=== PATIENT | male | born 1950 | race Caucasian/White ===

== ENCOUNTER → 2017-04-30 09:44 | Outpatient (CLI) | payer MEDICARE, SELFPAY ==
[2017-04-30 12:39] LABS: ALB/GLOB Ratio 1.1 RATIO (0.9-2.4); AST(SGOT) 25 U/L (15-37); Alanine Aminotransfer ALT/SGPT 35 U/L (16-61); Albumin, Serum 3.7 g/dL (3.2-5.0); Alkaline Phosphatase 83 U/L (45-117); Anion Gap 7 (5-15); BUN 19 mg/dL (7-18); BUN/Creat Ratio 27.1 RATIO (10-20); Calcium,Total 8.6 mg/dL (8.5-10.1); Chloride 108 mmol/L (98-107); Cholesterol 244 mg/dL (200); EST Glomerular Filtration Rate 119 mL/min (>60); Est Glom Filt Rate - Afr Amer 144 mL/min (>60); Globulin 3.3 g/dL (2.2-4.2); Glucose 103 mg/dL (74-106); High Density Lipoprotein 38 mg/dL; Sodium Level 140 mmol/L (136-145); Triglycerides 119 mg/dL; Very Low Density Lipoprotein 24 mg/dL (5-40)
== END ==
PROVIDERS: Family Provider Family Medicine; PCP Family Medicine; Visit Provider Family Medicine
DX: E78.5 Hyperlipidemia, unspecified (principal)
CPT/HCPCS: 36415; 80053; 80061

== ENCOUNTER → 2017-10-22 11:45 | Outpatient (CLI) | payer MEDICARE, SELFPAY ==
[2017-10-22 14:10] LABS: Hematocrit 39.1 % (40-54); Hemoglobin 12.8 g/dl (13.0-16.5); Mean Corp Hgb Conc 32.7 g/gl (32-36); Mean Corpuscular Hgb 28.8 pg (27.0-32.0); Mean Corpuscular Volume 88.1 fL (80-94); Mean Platelet Vol. 10.5 fl (6.2-12.0); Platelet Count 365 K/mm3 (150-450); RBC Distribution Width SD 45.2 fl (35.1-43.9); Red Blood Count 4.44 M/mm3 (4.6-6.2); White Blood Count 8.6 K/mm3 (4.4-11.0)
[2017-10-22 14:15] LABS: Scan Indicated on CBC? Y/N NO
[2017-10-22 14:33] LABS: ALB/GLOB Ratio 1.1 RATIO (0.9-2.4); AST(SGOT) 28 U/L (15-37); Alanine Aminotransfer ALT/SGPT 39 U/L (16-61); Albumin, Serum 3.7 g/dL (3.2-5.0); Alkaline Phosphatase 86 U/L (45-117); Anion Gap 9 (5-15); BUN 14 mg/dL (7-18); BUN/Creat Ratio 17.2 RATIO (10-20); Calcium,Total 9.1 mg/dL (8.5-10.1); Chloride 111 mmol/L (98-107); Cholesterol 176 mg/dL (200); Creatinine, Serum 0.81 mg/dL (0.70-1.30); EST Glomerular Filtration Rate 100 mL/min (>60); Est Glom Filt Rate - Afr Amer 121 mL/min (>60); Globulin 3.3 g/dL (2.2-4.2); Glucose 91 mg/dL (74-106); High Density Lipoprotein 41 mg/dL; Potassium 4.3 mmol/L (3.5-5.1); Sodium Level 146 mmol/L (136-145); Triglycerides 85 mg/dL; Very Low Density Lipoprotein 17 mg/dL (5-40)
== END ==
PROVIDERS: Family Provider Family Medicine; PCP Family Medicine; Visit Provider Family Medicine
DX: E78.5 Hyperlipidemia, unspecified (principal); Z85.79 Personal history of other malignant neoplasms of lymphoid, hematopoietic and related tissues
CPT/HCPCS: 36415; 80053; 80061; 85027

== ENCOUNTER → 2018-04-29 11:38 | Outpatient (CLI) | payer MEDICARE, SELFPAY ==
[2015-12-23 17:19] VITALS: BMI 27.1
[2018-04-29 14:24] LABS: AST(SGOT) 24 U/L (15-37); Alanine Aminotransfer ALT/SGPT 41 U/L (16-61); Alkaline Phosphatase 97 U/L (45-117); Bilirubin, Direct 0.15 mg/dL (0.00-0.30); Cholesterol 164 mg/dL (200); Globulin 3.3 g/dL (2.2-4.2); High Density Lipoprotein 38 mg/dL; Protein, Total 7.3 g/dL (6.4-8.2); Triglycerides 93 mg/dL; Very Low Density Lipoprotein 19 mg/dL (5-40)
== END ==
PROVIDERS: Family Provider Family Medicine; PCP Family Medicine; Referring Provider Family Medicine; Visit Provider Family Medicine
DX: E78.5 Hyperlipidemia, unspecified (principal)
CPT/HCPCS: 36415; 80061; 80076

== ENCOUNTER → 2018-06-26 10:35 | Outpatient (CLI) | payer MEDICARE, SELFPAY ==
[2015-12-23 17:19] VITALS: BMI 27.1
[2018-06-26 12:53] LABS: Hematocrit 40.3 % (40-54); Mean Corp Hgb Conc 32.3 g/gl (32-36); Mean Corpuscular Hgb 28.3 pg (27.0-32.0); Mean Corpuscular Volume 87.8 fL (80-94); Mean Platelet Vol. 10.3 fl (6.2-12.0); Platelet Count 404 K/mm3 (150-450); RBC Distribution Width SD 44.8 fl (35.1-43.9); Red Blood Count 4.59 M/mm3 (4.6-6.2); White Blood Count 7.1 K/mm3 (4.4-11.0)
[2018-06-26 13:05] LABS: Hemoglobin A1c 5.8 % (4.2-6.3)
[2018-06-26 13:11] LABS: Homocysteine 7.4 umol/L (3.2-10.7)
[2018-06-26 13:14] LABS: Scan Indicated on CBC? Y/N NO
[2018-06-26 13:18] LABS: Progesterone Level 0.27 ng/mL (See Comment); Vitamin B12 980 pg/mL (211-911); Vitamin D,25 Hydroxy 18.7 ng/mL (29.95-100.01)
[2018-06-26 15:30] LABS: ALB/GLOB Ratio 1.3 RATIO (0.9-2.4); AST(SGOT) 23 U/L (15-37); Alanine Aminotransfer ALT/SGPT 43 U/L (16-61); Albumin, Serum 3.9 g/dL (3.2-5.0); Alkaline Phosphatase 103 U/L (45-117); Anion Gap 8 (5-15); BUN 17 mg/dL (7-18); BUN/Creat Ratio 22.8 RATIO (10-20); CRP, High Sensitivity Cardiac 3.53 mg/L; Chloride 109 mmol/L (98-107); Cholesterol 173 mg/dL (200); Creatinine, Serum 0.75 mg/dL (0.70-1.30); EST Glomerular Filtration Rate 111 mL/min (>60); Est Glom Filt Rate - Afr Amer 134 mL/min (>60); Estradiol 18.4 pg/mL; Follicle Stimulating Hormone 17.6 mIU/mL; Free T3 2.8 pg/mL (2.18-3.98); Globulin 3.1 g/dL (2.2-4.2); Glucose 97 mg/dL (74-106); High Density Lipoprotein 39 mg/dL; Iron 48 ug/dL (65-175); Magnesium 1.9 mg/dL (1.6-2.6); PSA,Total - Annual Screen 2.54 ng/mL (0.00-4.00); Potassium 4.6 mmol/L (3.5-5.1); Prolactin 4.5 ng/mL; Sodium Level 143 mmol/L (136-145); T4 Total, Thyroxin 8.4 ug/dL (4.5-12.1); Thyroid Stim Hormone (TSH) 1.62 uIU/mL (0.358-3.74); Triglycerides 80 mg/dL; Very Low Density Lipoprotein 16 mg/dL (5-40)
[2018-06-29 09:07] LABS: DHEA Sulfate 95.6 ug/dL (30.9-295.6); Insulin Like Growth Factor 90 ng/mL (47-192); Testosterone, % Free 2.24 % (1.50-4.20); Testosterone, Free 5.15 ng/dL (5.00-21.00)
[2018-06-29 11:58] LABS: Sex Hormone-binding Globulin 34.4 nmol/L (19.3-76.4); Testosterone, Total 230 ng/dL (264-916)
== END ==
PROVIDERS: Family Provider Family Medicine; PCP Family Medicine; Referring Provider Family Medicine; Visit Provider Registered Nurse
DX: R53.82 Chronic fatigue, unspecified (principal); M62.81 Muscle weakness (generalized); R68.82 Decreased libido
CPT/HCPCS: 36415; 80053; 80061; 82306; 82533; 82607; 82627; 82670; 82746; 83001; 83002; 83036; 83090; 83540; 83735; 84144; 84146; 84153; 84270; 84305; 84402; 84403; 84436; 84439; 84443; 84481; 85027; 86141; 82626; G0103

== ENCOUNTER → 2018-08-03 14:16 | Outpatient (CLI) | payer MEDICARE, SELFPAY | PROVIDERS: Family Provider Family Medicine; PCP Family Medicine; Visit Provider Family Medicine | DX: E29.1 Testicular hypofunction (principal) | CPT/HCPCS: 36415; 84403 ==

== ENCOUNTER → 2019-05-10 14:44 | Outpatient (CLI) | payer MEDICARE, SELFPAY ==
[2015-12-23 17:19] VITALS: BMI 27.1
[2019-05-10 17:43] LABS: Absolute Lymphocyte Count 1.59 X10^3/uL (0.83-4.51); Absolute Neutrophil Count 6.1 X10^3/uL (2.0-7.7); Basophil# 0.06 X10^3/uL; Basophil% 0.6 % (0-1); Eosinophil# 0.91 X10^3/uL; Eosinophils% 9.5 % (0-5); Hematocrit 40.4 % (40-54); Hemoglobin 12.8 g/dL (13.0-16.5); Lymphocyte # 1.59 X10^3/ul (4.0); Lymphocyte % 16.6 % (19-41); Mean Corp Hgb Conc 31.7 g/dL (32-36); Mean Corpuscular Hgb 28.9 pg (27.0-32.0); Mean Corpuscular Volume 91.2 fL (80-94); Mean Platelet Vol. 10.6 fl (6.2-12.0); Monocyte# 0.88 X10^3/uL; Monocyte% 9.2 % (0-10); NRBC Flagged by Analyzer 0 % (0-5); Neutrophil # 6.11 X10^3/uL (2.7-7.7); Neutrophil % 63.9 % (47-70); Platelet Count 389 K/mm3 (150-450); RBC Distribution Width CV 13.6 % (11.6-14.6); RBC Distribution Width SD 45.9 fl (35.1-43.9); Red Blood Count 4.43 M/mm3 (4.6-6.2); White Blood Count 9.6 K/mm3 (4.4-11.0)
[2019-05-10 18:01] LABS: Vitamin D,25 Hydroxy 31.3 ng/mL
[2019-05-10 18:05] LABS: Anion Gap 6 (5-15); BUN 15 mg/dL (7-18); BUN/Creat Ratio 18.8 RATIO (10-20); Calcium,Total 9.1 mg/dL (8.5-10.1); Chloride 111 mmol/L (98-107); Cholesterol 158 mg/dL (200); EST Glomerular Filtration Rate 102 mL/min (>60); Est Glom Filt Rate - Afr Amer 123 mL/min (>60); Glucose 90 mg/dL (74-106); High Density Lipoprotein 36 mg/dL; Potassium 4.2 mmol/L (3.5-5.1); Sodium Level 143 mmol/L (136-145); Triglycerides 87 mg/dL; Very Low Density Lipoprotein 17 mg/dL (5-40)
== END ==
PROVIDERS: PCP Family Medicine; Referring Provider Family Medicine; Visit Provider Family Medicine
DX: E55.9 Vitamin D deficiency, unspecified (principal); D64.9 Anemia, unspecified; I10 Essential (primary) hypertension
CPT/HCPCS: 36415; 80048; 80061; 82306; 85025

== ENCOUNTER → 2019-11-15 13:53 | Outpatient (CLI) | payer MEDICARE, SELFPAY ==
[2015-12-23 17:19] VITALS: BMI 27.1
[2019-11-15 16:49] LABS: Cholesterol 172 mg/dL (200); High Density Lipoprotein 40 mg/dL; PSA,Total - Annual Screen 2.55 ng/mL (0.00-4.00); Triglycerides 77 mg/dL; Very Low Density Lipoprotein 15 mg/dL (5-40)
== END ==
PROVIDERS: PCP Family Medicine; Referring Provider Family Medicine; Visit Provider Family Medicine
DX: E78.5 Hyperlipidemia, unspecified (principal); Z12.5 Encounter for screening for malignant neoplasm of prostate
CPT/HCPCS: 36415; 80061; 84153; G0103

== ENCOUNTER 2020-04-27 10:49 | Outpatient (RCR) | payer MEDICARE, SELFPAY ==
[2015-12-23 17:19] VITALS: BMI 27.1
[2020-04-27] MEDS: COVID-19 VACC, MRNA(PFIZER)/PF 30 MCG/0.3 ML SYRINGE IM (09:05)
[2020-05-18] MEDS: COVID-19 VACC, MRNA(PFIZER)/PF 30 MCG/0.3 ML SYRINGE IM (09:02)
== END 2020-08-01 23:59 ==
LOC: IMMUN 10:49
PROVIDERS: PCP Family Medicine; Referring Provider Family Medicine; Visit Provider Family Medicine
DX: Z23 Encounter for immunization (principal)
CPT/HCPCS: 0001A; 0002A; 91300

== ENCOUNTER → 2020-05-15 13:52 | Outpatient (CLI) | payer MEDICARE, SELFPAY ==
[2015-12-23 17:19] VITALS: BMI 27.1
[2020-05-15 15:51] LABS: ALB/GLOB Ratio 1.1 RATIO (0.9-2.4); AST(SGOT) 20 U/L (15-37); Alanine Aminotransfer ALT/SGPT 37 U/L (16-61); Albumin, Serum 3.7 g/dL (3.2-5.0); Alkaline Phosphatase 103 U/L (45-117); Anion Gap 4 (5-15); BUN 14 mg/dL (7-18); Calcium,Total 8.9 mg/dL (8.5-10.1); Chloride 109 mmol/L (98-107); Cholesterol 173 mg/dL (200); EST Glomerular Filtration Rate 118 mL/min (>60); Est Glom Filt Rate - Afr Amer 143 mL/min (>60); Globulin 3.4 g/dL (2.2-4.2); Glucose 89 mg/dL (74-106); High Density Lipoprotein 40 mg/dL; Protein, Total 7.1 g/dL (6.4-8.2); Sodium Level 141 mmol/L (136-145); Triglycerides 82 mg/dL; Very Low Density Lipoprotein 16 mg/dL (5-40)
[2020-05-15 16:24] LABS: Hepatitis C Antibody Non-Reactive (Nonreactive)
== END ==
PROVIDERS: PCP Family Medicine; Visit Provider Family Medicine
DX: E78.5 Hyperlipidemia, unspecified (principal); Z11.59 Encounter for screening for other viral diseases
CPT/HCPCS: 36415; 80053; 80061; 86803

== ENCOUNTER → 2020-10-16 15:39 | Outpatient (CLI) | payer MEDICARE, SELFPAY | PROVIDERS: PCP Family Medicine; Visit Provider Physician Assistant | DX: Z11.52 Encounter for screening for COVID-19 (principal) | CPT/HCPCS: 87635; U0005; U0003 ==

== ENCOUNTER → 2020-11-02 14:42 | Outpatient (CLI) | payer MEDICARE, SELFPAY ==
[2020-11-02 18:51] LABS: Anion Gap 7 (5-15); BUN 17 mg/dL (7-18); BUN/Creat Ratio 23.2 RATIO (10-20); Calcium,Total 8.8 mg/dL (8.5-10.1); Chloride 108 mmol/L (98-107); Cholesterol 160 mg/dL (200); Creatinine, Serum 0.73 mg/dL (0.70-1.30); EST Glomerular Filtration Rate 112 mL/min (>60); Est Glom Filt Rate - Afr Amer 136 mL/min (>60); Glucose 94 mg/dL (74-106); High Density Lipoprotein 33 mg/dL; Sodium Level 140 mmol/L (136-145); Triglycerides 86 mg/dL; Very Low Density Lipoprotein 17 mg/dL (5-40)
== END ==
PROVIDERS: PCP Family Medicine; Referring Provider Family Medicine; Visit Provider Family Medicine
DX: Z00.00 Encounter for general adult medical examination without abnormal findings (principal); E78.5 Hyperlipidemia, unspecified; E55.9 Vitamin D deficiency, unspecified
CPT/HCPCS: 36415; 80048; 80061; 82306

== ENCOUNTER 2021-05-18 10:48 | Outpatient (CLI) | payer MEDICARE, SELFPAY ==
[2021-05-18 12:12] LABS: Basophil# 0.06 X10^3/uL; Basophil% 0.8 % (0-1); Eosinophil# 1.01 X10^3/uL; Hematocrit 38.1 % (40-54); Hemoglobin 12.5 g/dL (13.0-16.5); Lymphocyte % 21.9 % (19-41); Mean Corp Hgb Conc 32.8 g/dL (32-36); Mean Corpuscular Hgb 29.3 pg (27.0-32.0); Mean Corpuscular Volume 89.4 fL (80-94); Mean Platelet Vol. 10.2 fl (6.2-12.0); Monocyte# 0.96 X10^3/uL; Monocyte% 12.3 % (0-10); NRBC Flagged by Analyzer 0 % (0-5); Neutrophil # 4.03 X10^3/uL (2.7-7.7); Neutrophil % 51.7 % (47-70); Platelet Count 394 K/mm3 (150-450); Red Blood Count 4.26 M/mm3 (4.6-6.2); White Blood Count 7.8 K/mm3 (4.4-11.0)
[2021-05-18 12:26] LABS: Anion Gap 4 (5-15); BUN 19 mg/dL (7-18); BUN/Creat Ratio 26.4 RATIO (10-20); Calcium,Total 8.6 mg/dL (8.5-10.1); Chloride 110 mmol/L (98-107); Cholesterol 144 mg/dL (200); Creatinine, Serum 0.72 mg/dL (0.70-1.30); EST Glomerular Filtration Rate 114 mL/min (>60); Est Glom Filt Rate - Afr Amer 138 mL/min (>60); Glucose 109 mg/dL (74-106); High Density Lipoprotein 33 mg/dL; Potassium 4.1 mmol/L (3.5-5.1); Sodium Level 141 mmol/L (136-145); Triglycerides 78 mg/dL; Very Low Density Lipoprotein 16 mg/dL (5-40)
== END 2021-05-18 23:59 | disposition home or self-care (01) ==
LOC: MFPLAB 10:51
PROVIDERS: PCP Family Medicine; Referring Provider Family Medicine; Visit Provider Family Medicine
DX: E78.5 Hyperlipidemia, unspecified (principal); Z85.79 Personal history of other malignant neoplasms of lymphoid, hematopoietic and related tissues
CPT/HCPCS: 36415; 80048; 80061; 85025

== ENCOUNTER → 2021-10-31 | Outpatient (CLI) | payer MEDICARE, SELFPAY ==
[2021-10-31 18:58] LABS: ALB/GLOB Ratio 1.1 RATIO (0.9-2.4); AST(SGOT) 24 U/L (15-37); Alanine Aminotransfer ALT/SGPT 33 U/L (16-61); Albumin, Serum 3.6 g/dL (3.2-5.0); Alkaline Phosphatase 83 U/L (45-117); Anion Gap 7 (5-15); BUN 15 mg/dL (7-18); BUN/Creat Ratio 19.3 RATIO (10-20); Calcium,Total 8.8 mg/dL (8.5-10.1); Chloride 106 mmol/L (98-107); Cholesterol 242 mg/dL (200); Creatinine, Serum 0.78 mg/dL (0.70-1.30); EST Glomerular Filtration Rate 105 mL/min (>60); Est Glom Filt Rate - Afr Amer 127 mL/min (>60); Globulin 3.3 g/dL (2.2-4.2); Glucose 92 mg/dL (74-106); High Density Lipoprotein 38 mg/dL; PSA,Total - Annual Screen 2.71 ng/mL (0.00-4.00); Potassium 4.1 mmol/L (3.5-5.1); Protein, Total 6.9 g/dL (6.4-8.2); Sodium Level 140 mmol/L (136-145); Triglycerides 118 mg/dL; Very Low Density Lipoprotein 24 mg/dL (5-40)
== END | disposition home or self-care (01) ==
LOC: MFPLAB 14:24
PROVIDERS: PCP Family Medicine; Referring Provider Family Medicine; Visit Provider Family Medicine
DX: E78.5 Hyperlipidemia, unspecified (principal); Z12.5 Encounter for screening for malignant neoplasm of prostate
CPT/HCPCS: 36415; 80053; 80061; 84153; G0103

== ENCOUNTER → 2022-06-14 | Outpatient (CLI) | payer MEDICARE, SELFPAY ==
--- NOTE | 2022-06-14 15:05 | RAD_ITS ---
INDICATION: left foot pain EXAMINATION/TECHNIQUE: X-RAY - LEFT XR Foot Min 3 Views 3 VIEWS COMPARISON: Left ankle series same date FINDINGS: SOFT TISSUES: No soft tissue swelling or gas. No radiopaque foreign body. BONES/JOINTS: No acute fracture or subluxation.. Mild degenerative changes. Joint spaces anatomically aligned. No sclerotic or destructive changes observed. RAD/Foot min 3 Views IMPRESSION: No acute bony abnormality. Electronically Signed: He Acosta MD at 18:28 EDT ,
--- NOTE | 2022-06-14 15:05 | RAD_ITS ---
INDICATION: left ankle pain EXAMINATION/TECHNIQUE: X-RAY - LEFT XR Ankle Min 3 Views 3 VIEWS COMPARISON: Left foot series same date FINDINGS: SOFT TISSUES: No soft tissue swelling or gas. No radiopaque foreign body. BONES/JOINTS: No acute fracture or subluxation.. Joint spaces anatomically aligned. Mild degenerative changes.. No sclerotic or destructive changes observed. RAD/Ankle min 3 Views IMPRESSION: No acute findings. Electronically Signed: He Acosta MD at 18:27 EDT ,
== END | disposition home or self-care (01) ==
PROVIDERS: PCP Family Medicine; Referring Provider Family Medicine; Visit Provider Family Medicine
DX: S93.409A Sprain of unspecified ligament of unspecified ankle, initial encounter (principal)
CPT/HCPCS: 73610; 73630

== ENCOUNTER → 2022-07-31 | Outpatient (CLI) | payer MEDICARE, SELFPAY ==
--- NOTE | 2022-07-31 15:08 | VDLE_ITS ---
Reason For Study: Bi-lateral leg swelling RIGHT LEFT GSV is normal. GSV is normal. CFV is compressible, spontaneous, phasic, CFV is compressible, spontaneous, phasic, competent and demonstrates normal competent, and demonstrates normal augmentation. augmentation. FV is compressible, spontaneous, phasic, FV is compressible, spontaneous, phasic, competent and demonstrates normal competent and demonstrates normal augmentation. augmentation. POP V is compressible, spontaneous, phasic, POP V is compressible, spontaneous, phasic, competent and demonstrates normal competent and demonstrates normal augmentation. augmentation. T/P Trunk is compressible. T/P Trunk is compressible. PTV is compressible. PTV is compressible. RT PerV is compressible. LT PerV is compressible. Procedure This is a venous duplex using B-mode, color flow and spectral Doppler. Exam performed in department. The exam was diagnostic. A preliminary report was called and/or faxed to Dr. Moran's office. VL/Venous Duplex US - Sahil Extrem Interpretation Summary No evidence for acute deep venous thrombosis bilateral lower extremities with p atent and compressible bilateral great saphenous veins. Ordering Physician: Enrique Moran Referring Physician: Edvin Gonzalez Performed By: Price Lamb RVT
== END | disposition home or self-care (01) ==
LOC: CVS 15:03
PROVIDERS: PCP Family Medicine; Referring Provider Podiatrist; Visit Provider Podiatrist
DX: R22.42 Localized swelling, mass and lump, left lower limb (principal); I82.409 Acute embolism and thrombosis of unspecified deep veins of unspecified lower extremity
CPT/HCPCS: 93970

== ENCOUNTER → 2022-08-13 | Outpatient (CLI) | payer MEDICARE, SELFPAY ==
--- NOTE | 2022-08-13 13:00 | MRI_ITS ---
EXAM: MR LEFT LOWER EXTREMITY WITHOUT INTRAVENOUS CONTRAST, FOOT CLINICAL INDICATION: LEFT foot sinus tarsi syndrome,capsulitis 3rd MTPT, peronal -- tendinitis TECHNIQUE: Multiplanar and multisequence MR images of the left foot without intravenous contrast. COMPARISON: June 14, 2022 FINDINGS: Bones/Joints: Edema involving the medial cuneiform without fracture line. No other bone marrow signal alterations. Mild hallux valgus deformity. Soft tissues: Dorsal subcutaneous edema is nonspecific. No soft tissue masses or organized fluid collections. Flexor and extensor tendons are intact. Plantar aponeurosis is unremarkable. MRI/Lower Ext/No Jt/w/o IMPRESSION: 1. Nonspecific edema involving the incompletely imaged medial cuneiform without fracture line. Consider contusion versus infectious or inflammatory process. 2. No phlegmon or abscess. 3. Nonspecific dorsal subcutaneous edema. Correlate clinically to exclude cellulitis. Electronically Signed: Shen Wesley MD at 2:50 EDT ,
--- NOTE | 2022-08-13 13:45 | MRI_ITS ---
EXAM: MR LEFT LOWER EXTREMITY WITHOUT INTRAVENOUS CONTRAST, ANKLE CLINICAL INDICATION: LEFT ankle sinus tarsi syndrome, peroneal tindinitis -- metatarsalgia TECHNIQUE: Multiplanar and multisequence MR images of the left ankle without intravenous contrast. COMPARISON: No relevant prior studies available. FINDINGS: LIGAMENTS: ANTERIOR TALOFIBULAR: Unremarkable. Intact. POSTERIOR TALOFIBULAR: Unremarkable. Intact. ANTERIOR TIBIOFIBULAR: Unremarkable. Intact. POSTERIOR TIBIOFIBULAR: Unremarkable. Intact. CALCANEOFIBULAR: Unremarkable. Intact. DELTOID: Unremarkable. Intact. SPRING: Unremarkable. Intact. LISFRANC: Unremarkable. Intact. TENDONS: ACHILLES: Unremarkable. Intact. FLEXOR: Unremarkable. Intact. EXTENSOR: Unremarkable. Intact. PERONEAL: Short segment split tear involving the peroneus brevis tendon at the level of the fibular tip, reconstituting at the anterolateral calcaneus. TIBIALIS ANTERIOR: Unremarkable. Intact. TIBIALIS POSTERIOR: Tenosynovitis involving the posterior tibial tendon. No tendon tear. MUSCLES: Unremarkable. Normal bulk and signal. FLUID: Unremarkable. No tibiotalar or posterior subtalar joint effusion. SINUS TARSI: Sinus Tarsi signal is preserved. TARSAL TUNNEL: Unremarkable. PLANTAR FASCIA: Unremarkable. Intact. CARTILAGE: Unremarkable. No osteochondral lesion. Articular cartilage intact. BONES/JOINTS: Lateral collateral ligamentous complex is intact. Bone marrow edema involving the medial cuneiform and to a lesser degree the middle cuneiform. Distal navicular bone marrow edema. Bone marrow edema involving the talar neck. No fracture lines identified. OTHER SOFT TISSUES: Subcutaneous edema throughout the ankle and foot is nonspecific. OTHER FINDINGS: No phlegmon or abscess. Visualized plantar aponeurosis is unremarkable. MRI/Lower Ext Joint Only (Routine) IMPRESSION: 1. Bone marrow edema involving multiple bones (most prominently involving the medial cuneiform) without definite fracture line. Consider infectious, inflammatory or trauma related pathology. 2. Preservation of fat involving the sinus Tarsi indicating no significant pathology in this region. 3. Tenosynovitis involving the posterior tibial tendon without tendon tearing. 4. Short segment split tearing tearing of the peroneus brevis tendon. Electronically Signed: Shen Wesley MD at 1:54 EDT ,
== END | disposition home or self-care (01) ==
PROVIDERS: PCP Family Medicine; Referring Provider Podiatrist; Visit Provider Podiatrist
DX: M77.42 Metatarsalgia, left foot (principal); M76.72 Peroneal tendinitis, left leg; M25.572 Pain in left ankle and joints of left foot
CPT/HCPCS: 73718; 73721

== ENCOUNTER → 2022-09-11 | Outpatient (CLI) | payer MEDICARE, SELFPAY ==
--- NOTE | 2022-09-11 13:05 | ECHOD_ITS ---
Reason For Study: Sleep Apnea Procedure This was a 2D Doppler, Color Flow transthoracic echocardiogram. Exam performed in department. Left Ventricle Normal LV size. Mild eccentric left ventricular hypertrophy. Left ventricular systolic function is normal. The estimated ejection fraction is 60 %. Normal diastology for age. No regional wall motion abnormalities noted. Right Ventricle Normal RV size. Normal systolic function. The RV free wall longitudinal strain was -27.7 % . Atria The left and right atria are normal. Mitral Valve The mitral valve is structurally normal. No prolapse or stenosis seen. Mild (1+) mitral valve insufficiency. Tricuspid Valve Normal tricuspid valve. Trivial tricuspid valve insufficiency. Unable to estimate RV systolic pressure due to insufficient tricuspid regurgitant envelope. Aortic Valve Trisinus/trileaflet aortic valve. Mild focal aortic valve thickening. There is no aortic stenosis. No aortic valve insufficiency. Pulmonic Valve The pulmonic valve is not well visualized. Great Vessels Mildly dilated aortic root. Pericardium/Pleural No pericardial effusion. MMode/2D Measurements & Calculations LVIDd: 5.1 cm IVSd: 1.3 cm Ao root diam: 4.1 cm LVIDs: 3.4 cm LVPWd: 0.96 cm RVDd: 3.5 cm FS: 32.8 % LAV(MOD-bp): 61.7 ml LVAd ap4: 35.5 cm2 SV(MOD-sp4): 72.0 ml LAV(MOD-bp) Indexed: 28.1 ml/m2 LVLd ap4: 9.2 cm LAV(MOD-sp2): 66.8 ml EDV(MOD-sp4): 116.3 ml LAV(MOD-sp4): 54.0 ml EDV(sp4-el): 115.8 ml LVAs ap4: 19.2 cm2 LVLs ap4: 6.9 cm ESV(MOD-sp4): 44.4 ml ESV(sp4-el): 45.0 ml EF(MOD-sp4): 61.9 % EF(sp4-el): 61.1 % SV(sp4-el): 70.8 ml LA A4 area: 19.7 cm2 LA dimension(2D): 3.7 cm RA A4 area: 13.1 cm2 TAPSE: 2.0 cm Doppler Measurements & Calculations MV E max alfredo: 73.6 cm/sec Lat Peak E' Alfredo: 11.8 cm/sec Med Peak E' Alfredo: 8.5 cm/sec MV A max alfredo: 72.3 cm/sec E/E' lat: 6.3 E/E' med: 8.6 MV E/A: 1.0 Ao V2 max: 124.0 cm/sec LV V1 max: 108.7 cm/sec PA V2 max: 77.0 cm/sec Ao max P.1 mmHg LV V1 max P.7 mmHg ECHO/Echo Complete Interpretation Summary The estimated ejection fraction is 60 %.. Mild (1+) mitral valve insufficiency. Mildly dilated aortic root. Ordering Physician: Domingo Brown V Referring Physician: Domingo Brown V Performed By: Kalli Villalta RDCS and Student
== END | disposition home or self-care (01) ==
LOC: CVS 13:03
PROVIDERS: PCP Family Medicine; Referring Provider Internal Medicine Pulmonary Disease; Visit Provider Internal Medicine Pulmonary Disease
DX: G47.33 Obstructive sleep apnea (adult) (pediatric) (principal); R05.9 Cough, unspecified
CPT/HCPCS: 93306